=== PATIENT | male | born 1955 | race Caucasian/White ===

== ENCOUNTER 2016-05-04 05:48 | Emergency (ER) | payer BC, OTHER ==
[~2016-05-04] VITALS: Ht 180.3 cm; Wt 77.1 kg
[2016-05-04 07:10] LABS: Basophils # (auto) 0 uL; Basophils % (auto) 0.4 % (0.0-2.0); Eosinophils # (auto) 0.1 uL; Eosinophils % (auto) 0.9 % (0.0-7.0); Hematocrit 49.4 % (41.0-53.0); Hemoglobin 15.9 g/dL (13.5-17.5); Lymphocytes # (auto) 1.2 uL; Lymphocytes % (auto) 10.3 % (10.0-50.0); Mean Corpuscular Hemoglobin 29.5 pg (28.0-32.0); Mean Corpuscular Hgb Conc. 32.3 g/dL (32.0-36.0); Mean Corpuscular Volume 91.5 fL (80.0-100.0); Mean Platelet Volume 8.3 fL (7.4-10.4); Monocytes # (auto) 1.2 uL; Neutrophils # (auto) 9.5 uL; Neutrophils % (auto) 78.4 % (37.0-80.0); Platelet Count (auto) 259 10^3/uL (140-450); Red Cell Distribution Width 12.3 % (11.6-16.0); White Blood Cell 12.1 10^3/uL (4.4-10.8)
[2016-05-04] MEDS ORDERED: KETOROLAC TROMETH 30 MG/ML 1ML VIAL IV ONE (09:00)
[2016-05-04] MEDS ORDERED: SODIUM CHLORIDE 0.9% 2,000 ML IV ONE (09:00)
[2016-05-04] MEDS ORDERED: PROMETHAZINE HCL 25 MG/ML 1ML IV ONE (09:00)
[2016-05-04 09:41] LABS: Albumin 3.6 g/dL (3.4-5.0); BUN/Creatinine Ratio 4.1; Potassium 4.3 mmol/L (3.5-5.1)
[2016-05-04] MEDS ORDERED: SODIUM CHLORIDE 0.9% 1,000 ML IV ONE (09:42)
[2016-05-04 09:43] LABS: Bilirubin, Total 0.5 mg/dL (0.2-1.0); Total Protein 7.6 g/dL (6.4-8.2)
[2016-05-04] MEDS ORDERED: PIPERACILLIN-TAZOB 3.375GM 100 ML IV ONE (11:00)
[2016-05-04 11:29] LABS: Urine Bilirubin Negative (Negative); Urine Color Yellow (Yellow); Urine Glucose Normal (Normal); Urine Ketone Negative (Negative); Urine Nitrite Negative (Negative); Urine RBC 94 /hpf (0 - 3); Urine Squamous Epithelial Cell FEW /hpf (<5); Urine Urobilinogen Normal (Negative)
[2016-05-04 11:30] LABS: Urine Blood 2+ /uL (Negative)
[2016-05-04] MEDS ORDERED: MORPHINE SULFATE 4 MG/ML SYRG IV ONE (11:45)
[2016-05-04 12:20] VITALS: BP 152/79
== END 2016-05-04 12:49 | disposition short-term general hospital (02) ==
LOC: ER 05:48
DX: N13.2 Hydronephrosis with renal and ureteral calculous obstruction (principal); Z88.1 Allergy status to other antibiotic agents
CPT/HCPCS: 36415; 74176; 80053; 81001; 83690; 85025; 87040; 93005; 96361; 96365; 96375; 99285; J1885; J2270; J2543; J2550; J7030